=== PATIENT | female | born 1940 | race Caucasian/White ===

== ENCOUNTER 2023-04-09 06:42 | Day surgery (SDC) | payer MEDICAID ==
[~2023-04-09] VITALS: Ht 152.4 cm; Wt 106.1 kg
[2023-04-09] MEDS ORDERED: MIDAZOLAM HCL 5 MG/5 ML VIAL ONE (07:43)
[2023-04-09] MEDS ORDERED: fentaNYL CITRATE/PF 100 MCG/2 ML AMP ONE (07:43)
[2023-04-09 08:00] VITALS: O2SAT 100
[2023-04-09 10:29] VITALS: BP_SYST 121; PULSE 79; RESP 17
== END 2023-04-09 09:30 | disposition home or self-care (01) ==
LOC: SDS 06:42 → SMU 06:53 → SDS 09:30
PROVIDERS: ATTEND Internal Medicine
DX: R13.10 Dysphagia, unspecified (principal); K22.2 Esophageal obstruction; K29.50 Unspecified chronic gastritis without bleeding; K74.69 Other cirrhosis of liver; I85.10 Secondary esophageal varices without bleeding; K44.9 Diaphragmatic hernia without obstruction or gangrene; E11.9 Type 2 diabetes mellitus without complications; K21.9 Gastro-esophageal reflux disease without esophagitis; Z79.84 Long term (current) use of oral hypoglycemic drugs; Z79.899 Other long term (current) drug therapy
CPT/HCPCS: 43249; 43239; 99152; 82962; 88305; 88312; 88313; G0378; J2250; J3010